=== PATIENT | female | born 1965 | race Caucasian/White ===

== ENCOUNTER 2024-02-28 17:57 | Inpatient (IN) ==
[2024-02-28 18:30] LABS: BILIRUBIN,URINE NEGATIVE (NEGATIVE); BLOOD/HEMOGLOBIN,URINE NEGATIVE (NEGATIVE); GLUCOSE, URINE NEGATIVE (NEGATIVE); KETONES,URINE NEGATIVE (NEGATIVE); LEUKOCYTE ESTERASE ,URINE NEGATIVE (NEGATIVE); NITRITES,URINE NEGATIVE (NEGATIVE); PROTEIN,URINE NEGATIVE (NEGATIVE); UROBILINOGEN,URINE NORMAL (NORMAL)
[2024-02-28 18:34] LABS: APPEARANCE,URINE CLEAR (CLEAR); COLOR,URINE YELLOW (YELLOW)
--- NOTE | 2024-02-28 18:36 | DR.EXTPAIN ---
HPI Time seen Time Seen by Provider: 02/28/24 18:34 PCP Primary Care Physician: Wu Complaint/Symptoms Chief Complaint Doctor Comments: Patient history of pelvic pain since yesterday. Denies pain with urination but states does have a stabbing pain with standing. Chief Complaint:: having pelvic pain since yesterday, denies pain with urination but has stabbing pain when standing. 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 Past Surgical History Comment: D&C x3 Family History History of Family Medical Conditions: No (unknown) Family Medical History: Hypertension Family Medical History Comment: adopted Social History Alcohol Use: None Do you use any recreational Drugs:: No Lives With: Spouse Lives Where: Home Travel Risk Coronavirus risk:travel/contact w/high risk person: No Has patient experienced Coronavirus symptoms: No Infectious screening Have you traveled outside the country in the last 6 months?: No Isolation: Standard ROS Review of Systems Constitutional: Other (Lower abdominal pain) Eyes: No Symptoms Reported ENTM: No Symptoms Reported Respiratoy: No Symptoms Reported Cardiovascular: No Symptoms Reported Gastrointestinal/Abdominal: Abdominal Pain Genitourinary: No Symptoms Reported Neurological: No Symptoms Reported Musculoskeletal: No Symptoms Reported Integumentary: No Symptoms Reported Hematologic/Lymphatic: No Symptoms Reported Endocrine: No Symptoms Reported Psychiatric: No Symptoms Reported PE Vital Signs Vitals: Vital Signs Temperature 97.5 F Pulse Rate 107 Respiratory Rate 20 Respiratory Rate 24 Blood Pressure 129/58 O2 Sat by Pulse Oximetry 95 General Limitations: No Limitations General Appearance: In Distress (MODERATE DISTRESS) Head Head Exam: Normal Inspection, Atraumatic and Normocephalic Eyes Eye exam: Normal Appearance and PERRL ENT ENT Exam: Normal Exam and Normal Oropharynx Neck Neck Exam: Normal Inspection, Full ROM and Trachea Midline Respiratory Respiratory Exam: Normal Lung Sounds Bilat Respiratory Exam: Bilateral: Clear to Auscultation Cardiovascular Cardiovascular Exam: Regular Rate and Normal Rhythm Abdominal Exam Abdominal Exam: Normal Inspection Extremities Extremities Exam: Normal Inspection and Full ROM Upper Extremities Shoulder Exam: Normal Inspection Arm Exam: Normal Inspection Elbow Exam: Normal Inspection Forearm Exam: Normal Inspection Hand Exam: Normal Inspection Neuromotor Exam: Normal Exam Neurosensory Exam: Normal Exam Lower Extremities Hip/Pelvis Exam: Normal Inspection Upper Leg Exam: Normal Inspection Knee Exam: Normal Inspection Lower Leg Exam: Normal Inspection Ankle Exam: Normal Inspection Foot/Toe Exam: Normal Inspection Gait Exam: Observed and Normal Back Back Exam: Normal Inspection Neurological Neurological Exam: Alert Psychiatric Psychiatric Exam: Normal Affect and Normal Mood Skin Skin Exam: Dry MDM Differential Diagnosis Differential Diagnosis: Other (DIVERTICULITIS,APPENDICITIS,BILE OBSTRUCTION,UROLITHIASIS,UTI,ADHESIONS) COURSE Treatment Treatment: Remained relatively stable during ER visit. We did do a CT scan of her abdomen pelvis and it did show diverticulitis of the sigmoid colon with abscess or free air. We did a CBC that had a slightly elevated WBC of 13.9 the metabolic panel was normal slight elevated glucose of 125. Urinalysis was negative. This patient was explained why diverticulitis was not an intent to admit her for acute diverticulitis we did give her initially 1 L bolus of normal saline and she got Zofran 4 mg IV as well as 100 mg of gentamicin IV. Contact was made with Dr. De Guzman at about [phone] and he is set the patient for admission for treatment of diverticulitis. This patient will be admitted to acute care. The patient was made aware of the intent to admit and was agreeable to the admission. ROR Labs Reviewed Laboratory Results Reviewed?: Yes 02/28/24 18:48 02/28/24 18:48 Laboratory: WBC 13.9 X10^3/uL (3.6-10.0) H 02/28/24 18:48 RBC 4.60 X10^6/uL (3.5-5.4) 02/28/24 18:48 Hgb 13.0 g/dL (12.0-16.0) 02/28/24 18:48 Hct 39.5 % (36.0-47.0) 02/28/24 18:48 MCV 85.9 fL (80.0-100.0) 02/28/24 18:48 MCH 28.3 pg (27.0-34.0) 02/28/24 18:48 MCHC 33.0 g/dL (33.0-35.0) 02/28/24 18:48 RDW 14.6 % (11.6-16.5) 02/28/24 18:48 Plt Count 316 X10^3/uL (150.0-450.0) 02/28/24 18:48 MPV 7.0 fL (7.4-11.0) L 02/28/24 18:48 Neut % (Auto) 67.7 % (42.0-75.0) 02/28/24 18:48 Lymph % (Auto) 21.5 % (21.0-51.0) 02/28/24 18:48 [place] % (Auto) 8.6 % (0.0-13.0) 02/28/24 18:48 Eos % (Auto) 1.5 % (0.9-2.9) 02/28/24 18:48 Baso % (Auto) 0.7 % (0.2-1.0) 02/28/24 18:48 Neut # (Auto) 9.4 x10^3/uL (2.2-4.8) H 02/28/24 18:48 Lymph # (Auto) 3.0 X10^3/uL (1.3-2.9) H 02/28/24 18:48 [place] # (Auto) 1.2 x10^3/uL (0.3-0.8) H 02/28/24 18:48 Eos # (Auto) 0.2 x10^3/uL (0.0-0.2) 02/28/24 18:48 Baso # (Auto) 0.1 X10^3/uL (0.0-0.1) 02/28/24 18:48 Absolute Nucleated RBC 0.1 /100WBC 02/28/24 18:48 Sodium 141 mmol/L (136-145) 02/28/24 18:48 Corrected Sodium 142 mmol/L (136-145) 02/28/24 18:48 Potassium 3.9 mmol/L (3.5-5.1) 02/28/24 18:48 Chloride 105 mmol/L (98-107) 02/28/24 18:48 Carbon Dioxide 30.5 mmol/L (21-32) 02/28/24 18:48 BUN 16 mg/dL (7-18) 02/28/24 18:48 Creatinine 1.03 mg/dL (0.55-1.02) H 02/28/24 18:48 Est GFR (MDRD) Af Amer > 60 (>60) 02/28/24 18:48 Est GFR (MDRD) Non-Af 58 (>60) L 02/28/24 18:48 Glucose 125 mg/dL (65-99) H 02/28/24 18:48 Calcium 8.9 mg/dL (8.5-10.1) 02/28/24 18:48 Corrected Calcium 9.5 mg/dL (8.5-10.1) 02/28/24 18:48 Total Bilirubin 0.20 mg/dL (0.2-1.0) 02/28/24 18:48 AST 20 Units/L (15-37) 02/28/24 18:48 ALT 38 Units/L (12-78) 02/28/24 18:48 Alkaline Phosphatase 118 Units/L (46-116) H 02/28/24 18:48 Total Protein 6.9 g/dL (6.4-8.2) 02/28/24 18:48 Albumin 3.2 g/dL (3.4-5.0) L 02/28/24 18:48 Globulin 3.7 g/dL (2.5-4.5) 02/28/24 18:48 Albumin/Globulin Ratio 0.9 Ratio (1.1-2.1) L 02/28/24 18:48 Specimen Type Clean catch urine 02/28/24 18:21 Urine Color Yellow (YELLOW) 02/28/24 18:21 Urine Appearance Clear (CLEAR) 02/28/24 18:21 Urine pH 5.0 (5.0 - 8.0) 02/28/24 18:21 Ur Specific [place] 1.020 (1.000-1.030) 02/28/24 18:21 Urine Protein Negative (NEGATIVE) 02/28/24 18:21 Urine Glucose (UA) Negative (NEGATIVE) 02/28/24 18:21 Urine Ketones Negative (NEGATIVE) 02/28/24 18:21 Urine Blood Negative (NEGATIVE) 02/28/24 18:21 Urine Nitrite Negative (NEGATIVE) 02/28/24 18:21 Urine Bilirubin Negative (NEGATIVE) 02/28/24 18:21 Urine Urobilinogen Normal (NORMAL) 02/28/24 18:21 Ur Leukocyte Esterase Negative (NEGATIVE) 02/28/24 18:21 Opioid Opioid Risk Tool Age (Gopal box if 16-45): No History of Preadolescent Sexual Abuse: No Total: 0 Total Score Risk Category: Low Risk Copyright: Brock MONTES predicting aberrant behaviors Discharge Plan Diagnosis Discharge Problem: Diverticulitis large intestine Discharge Plan Patient Disposition: ADMITTED INPATIENT Condition: Stable Prescriptions: No Action pantoprazole [Protonix] 40 mg Tablet,Delayed Release (Dr/Ec) 40 mg PO QDAY Health Concerns: Post Hospitalization: new medications and changes needed to prevent readmission or further decline. Pt educated and given instructions on all concerns. Plan of Treatment: Continue with present treatment and follow up plan. Pt is to keep follow up appointment as instructed and take medications as ordered. Orders to Discharge Patient Discharge Orders: Transfer (Routine); Ordered 02/29/24 Ordered By: Lowell Aquino Follow ups/Referrals Follow ups/Referrals: MADISON WU [Primary Care Provider] - 3 days
[2024-02-28 18:56] LABS: BASOPHILS # (AUTO) 0.1 X10^3/uL (0.0-0.1); BASOPHILS % (AUTO) 0.7 % (0.2-1.0); EOSINOPHILS # (AUTO) 0.2 x10^3/uL (0.0-0.2); EOSINOPHILS % (AUTO) 1.5 % (0.9-2.9); HEMATOCRIT 39.5 % (36.0-47.0); LYMPHOCYTES % (AUTO) 21.5 % (21.0-51.0); MEAN CORPUSCULAR HEMOGLOBIN 28.3 pg (27.0-34.0); MEAN CORPUSCULAR VOLUME 85.9 fL (80.0-100.0); MONOCYTES # (AUTO) 1.2 x10^3/uL (0.3-0.8); MONOCYTES % (AUTO) 8.6 % (0.0-13.0); NEUTROPHILS # (AUTO) 9.4 x10^3/uL (2.2-4.8); NEUTROPHILS % (AUTO) 67.7 % (42.0-75.0); PLATELET COUNT 316 X10^3/uL (150.0-450.0); RED CELL DISTRIBUTION WIDTH 14.6 % (11.6-16.5); WHITE BLOOD COUNT 13.9 X10^3/uL (3.6-10.0)
[2024-02-28] MEDS ORDERED: OMNIPAQUE 350 mg/mL 100 mL BTL 100 ML ONE (18:59)
[2024-02-28] MEDS: TORADOL 30 MG VIAL IVP ONE (19:02)
[2024-02-28 19:09] LABS: ALANINE AMINOTRANSFERASE 38 Units/L (12-78); ALBUMIN 3.2 g/dL (3.4-5.0); ALKALINE PHOSPHATASE 118 Units/L (46-116); ASPARTATE AMINO TRANSFERASE 20 Units/L (15-37); BLOOD UREA NITROGEN 16 mg/dL (7-18); CALCIUM 8.9 mg/dL (8.5-10.1); CARBON DIOXIDE 30.5 mmol/L (21-32); CHLORIDE 105 mmol/L (98-107); COR CA(FOR HYPOALB) 9.5 mg/dL (8.5-10.1); COR NA(FOR HYPERGLY) 142 mmol/L (136-145); CREATININE 1.03 mg/dL (0.55-1.02); GLUCOSE 125 mg/dL (65-99); POTASSIUM 3.9 mmol/L (3.5-5.1); SODIUM 141 mmol/L (136-145); TOTAL PROTEIN 6.9 g/dL (6.4-8.2); eGFR NON BLACK RACES 58 (>60)
--- NOTE | 2024-02-28 19:47 | CT ---
EXAM:ABDCMEN/PELVIS WITH CONHISTORY:lower abd pain;COMPARISON:None.TECHNIQUE:Following the intravenous administration of iodinated contrast, spiral CT imaging was performed through the abdomen and pelvis and axial, coronal, and sagittal CT images were generated.FINDINGS:The lung bases are grossly clear without effusion. Liver, gallbladder, pancreas, spleen are normal. There is some adrenal hyperplasia. There is mild right renal cortical scarring. Kidneys are otherwise unremarkable. There is food and fluid in the stomach. The small bowel loops are normal. The appendix is normal. There is diverticulosis of the descending and sigmoid colon. There is diverticulitis in the sigmoid colon with induration of the surrounding fat but no abscess or free air. Urinary bladder is normal. The uterus has been removed. There is moderate systemic atherosclerosis. There is degeneration of the lumbar spine and in the hips, right worse than left.IMPRESSION:1. Sigmoid diverticulitis without abscess or free air.THIS IS AN ELECTRONICALLY VERIFIED FINAL REPORT02/28/2024 7:43 PM - Electronically signed by Sudhir Junior MD
[2024-02-28] MEDS: NS 1,000 ML IV 1,000 ML IV ONE (20:41)
[2024-02-28] MEDS: ZOFRAN INJ 4 MG VIAL IVP ONE (20:41)
[2024-02-28] MEDS: GENTAMICIN INJ 80 MG in NS 100 ML IV 100 ML IV ONE (21:00)
[2024-02-29] MEDS ORDERED: ZOFRAN INJ 4 MG VIAL IVP PRN (01:26)
[2024-02-29] MEDS: D5 1/2 NS 1,000 ML 1,000 ML IV SCH (02:28)
[2024-02-29 02:33] VITALS: BMI 41.8
[2024-02-29] MEDS: DEMEROL INJ IVP PRN (02:36)
[2024-02-29 05:27] LABS: BASOPHILS # (AUTO) 0.1 X10^3/uL (0.0-0.1); BASOPHILS % (AUTO) 0.5 % (0.2-1.0); EOSINOPHILS # (AUTO) 0.2 x10^3/uL (0.0-0.2); EOSINOPHILS % (AUTO) 1.9 % (0.9-2.9); HEMATOCRIT 35.1 % (36.0-47.0); HEMOGLOBIN 11.7 g/dL (12.0-16.0); LYMPHOCYTES # (AUTO) 1.9 X10^3/uL (1.3-2.9); LYMPHOCYTES % (AUTO) 17.4 % (21.0-51.0); MEAN CORPUSCULAR HEMOGLOBIN 28.8 pg (27.0-34.0); MEAN CORPUSCULAR HGB CONC 33.2 g/dL (33.0-35.0); MEAN CORPUSCULAR VOLUME 86.5 fL (80.0-100.0); MEAN PLATELET VOLUME 7.3 fL (7.4-11.0); MONOCYTES % (AUTO) 8.9 % (0.0-13.0); NEUTROPHILS # (AUTO) 7.7 x10^3/uL (2.2-4.8); NEUTROPHILS % (AUTO) 71.3 % (42.0-75.0); PLATELET COUNT 305 X10^3/uL (150.0-450.0); RED BLOOD COUNT 4.06 X10^6/uL (3.5-5.4); RED CELL DISTRIBUTION WIDTH 14.4 % (11.6-16.5); WHITE BLOOD COUNT 10.8 X10^3/uL (3.6-10.0)
[2024-02-29] MEDS: CLEOCIN 300 MG IV PREMIX 300 MG/50 ML BAG IV SCH (05:36)
[2024-02-29 05:52] LABS: ALANINE AMINOTRANSFERASE 36 Units/L (12-78); ALBUMIN 2.7 g/dL (3.4-5.0); ALKALINE PHOSPHATASE 105 Units/L (46-116); ASPARTATE AMINO TRANSFERASE 24 Units/L (15-37); BLOOD UREA NITROGEN 19 mg/dL (7-18); CALCIUM 8.2 mg/dL (8.5-10.1); CARBON DIOXIDE 27.6 mmol/L (21-32); CHLORIDE 105 mmol/L (98-107); COR CA(FOR HYPOALB) 9.2 mg/dL (8.5-10.1); COR NA(FOR HYPERGLY) 139 mmol/L (136-145); CREATININE 0.89 mg/dL (0.55-1.02); GLUCOSE 113 mg/dL (65-99); POTASSIUM 4.3 mmol/L (3.5-5.1); SODIUM 139 mmol/L (136-145); TOTAL PROTEIN 5.9 g/dL (6.4-8.2); eGFR NON BLACK RACES > 60 (>60)
[2024-02-29] MEDS: PROTONIX INJ 40 MG VIAL IVP SCH (09:03)
[2024-02-29] MEDS: GENTAMICIN INJ 60 MG in NS 100 ML IV 100 ML IV SCH (09:04)
[2024-02-29] MEDS: NICOTINE PATCH TD SCH (09:04)
[2024-02-29] MEDS: TYLENOL 325 MG TAB PO PRN (09:44)
[2024-02-29] MEDS: CIPRO IV 400 MG PREMIX* 400 MG/200 ML IV.SOLN. IV SCH (09:52)
--- NOTE | 2024-02-29 12:27 | DR.H&P ---
H&P History & Physical for Day of: H&P Date: 02/29/24 Chief Complaint Chief Complaint: abdominal pain Allergies Allergies Allergy/AdvReac Type Severity Reaction Status Date / Time No Known Drug Allergies Allergy Unknown Verified 02/28/24 18:06 History of Present Illness History of Present Illness: Ms Fernando is a 58y/o female with a PMH of GERD presented with worsening lower abdominal pain. She also had some associated nausea and vomiting. In the ER, CTAP showed acute sigmoid diverticulitis. She was started on hydration, pain control and IV antibiotics. She was kept NPO. She is feeling better now. She has not had any nausea or vomiting overnight. She would like to try clear liquids. She states abdominal pain is better. She has been ambulating to the bathroom. Labs/imaging reviewed -WBC 10.8 Hgb 11.7 BUN/Cr: 19/0.89 Glucose 113 Plan: Will switch to Cipro, continue clindamycin. Continue IVF, pain control and anti-emetics. Start clears, advance as tolerated. Resume home medications. Ambulate as tolerated. Monitor AM labs/imaging. 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 Family History Family Medical History: Hypertension Social History Alcohol Use: None Medications Home Medications: Home Medications Medication Instructions Recorded Confirmed Type pantoprazole 40 mg tablet,delayed 40 mg PO QDAY 02/28/24 02/28/24 History release (Protonix) Labs 02/29/24 04:26 02/29/24 04:26 Labs: Laboratory WBC 10.8 X10^3/uL (3.6-10.0) H 02/29/24 04: RBC 4.06 X10^6/uL (3.5-5.4) 02/29/24 04:26 Hgb 11.7 g/dL (12.0-16.0) L 02/29/24 04: Hct 35.1 % (36.0-47.0) L 02/29/24 04: MCV 86.5 fL (80.0-100.0) 02/29/24 04:26 MCH 28.8 pg (27.0-34.0) 02/29/24 04: MCHC 33.2 g/dL (33.0-35.0) 02/29/24 04: RDW 14.4 % (11.6-16.5) 02/29/24 04: Plt Count 305 X10^3/uL (150.0-450.0) 02/29/24 04:26 MPV 7.3 fL (7.4-11.0) L 02/29/24 04:26 Neut % (Auto) 71.3 % (42.0-75.0) 02/29/24 04:26 Lymph % (Auto) 17.4 % (21.0-51.0) L 02/29/24 04:26 [place] % (Auto) 8.9 % (0.0-13.0) 02/29/24 04:26 Eos % (Auto) 1.9 % (0.9-2.9) 02/29/24 04: Baso % (Auto) 0.5 % (0.2-1.0) 02/29/24 04:26 Neut # (Auto) 7.7 x10^3/uL (2.2-4.8) H 02/29/24 04:26 Lymph # (Auto) 1.9 X10^3/uL (1.3-2.9) 02/29/24 04:26 [place] # (Auto) 1.0 x10^3/uL (0.3-0.8) H 02/29/24 04:26 Eos # (Auto) 0.2 x10^3/uL (0.0-0.2) 02/29/24 04:26 Baso # (Auto) 0.1 X10^3/uL (0.0-0.1) 02/29/24 04:26 Absolute Nucleated RBC 0.0 /100WBC 02/29/24 04:26 Sodium 139 mmol/L (136-145) 02/29/24 04:26 Corrected Sodium 139 mmol/L (136-145) 02/29/24 04:26 Potassium 4.3 mmol/L (3.5-5.1) 02/29/24 04:26 Chloride 105 mmol/L (98-107) 02/29/24 04:26 Carbon Dioxide 27.6 mmol/L (21-32) 02/29/24 04:26 BUN 19 mg/dL (7-18) H 02/29/24 04:26 Creatinine 0.89 mg/dL (0.55-1.02) 02/29/24 04:26 Est GFR (MDRD) Af Amer > 60 (>60) 02/29/24 04:26 Est GFR (MDRD) Non-Af > 60 (>60) 02/29/24 04:26 Glucose 113 mg/dL (65-99) H 02/29/24 04:26 Calcium 8.2 mg/dL (8.5-10.1) L 02/29/24 04:26 Corrected Calcium 9.2 mg/dL (8.5-10.1) 02/29/24 04:26 Total Bilirubin 0.30 mg/dL (0.2-1.0) 02/29/24 04:26 AST 24 Units/L (15-37) 02/29/24 04:26 ALT 36 Units/L (12-78) 02/29/24 04:26 Alkaline Phosphatase 105 Units/L (46-116) 02/29/24 04:26 Total Protein 5.9 g/dL (6.4-8.2) L 02/29/24 04:26 Albumin 2.7 g/dL (3.4-5.0) L 02/29/24 04:26 Globulin 3.2 g/dL (2.5-4.5) 02/29/24 04: Albumin/Globulin Ratio 0.8 Ratio (1.1-2.1) L 02/29/24 04:26 Specimen Type Clean catch urine 02/28/24 18:21 Urine Color Yellow (YELLOW) 02/28/24 18:21 Urine Appearance Clear (CLEAR) 02/28/24 18:21 Urine pH 5.0 (5.0 - 8.0) 02/28/24 18:21 Ur Specific [place] 1.020 (1.000-1.030) 02/28/24 18:21 Urine Protein Negative (NEGATIVE) 02/28/24 18:21 Urine Glucose (UA) Negative (NEGATIVE) 02/28/24 18: Urine Ketones Negative (NEGATIVE) 02/28/24 18:21 Urine Blood Negative (NEGATIVE) 02/28/24 18:21 Urine Nitrite Negative (NEGATIVE) 02/28/24 18:21 Urine Bilirubin Negative (NEGATIVE) 02/28/24 18:21 Urine Urobilinogen Normal (NORMAL) 02/28/24 18:21 Ur Leukocyte Esterase Negative (NEGATIVE) 02/28/24 18:21 Review of Systems Constitutional: Malaise Eyes: No Symptoms Reported Respiratory: No Symptoms Reported Cardiovascular: No Symptoms Reported Gastrointestinal: Nausea, Vomiting and Abdominal Pain Genitourinary: No Symptoms Reported Musculoskeletal: No Symptoms Reported Skin: No Symptoms Reported Neurological: No Symptoms Reported Physical Exam Vital Signs: Vital Signs Temperature 97.8 F Temperature 97.8 F Pulse Rate [Brachial] 76 Pulse Rate [Brachial] 81 Respiratory Rate 20 Respiratory Rate 20 Respiratory Rate 20 Respiratory Rate 20 Blood Pressure [Right Arm] 102/51 Blood Pressure [Right Arm] 124/70 O2 Sat by Pulse Oximetry 98 O2 Sat by Pulse Oximetry 96 Oriented: Normal Eyes: Normal Nose: Normal Respiratory: Clear Throughout Cardiovascular: Normal Auscultation: Bowel Sounds: Normal Tenderness: Suprapubic and Mild Skin: Normal Musculoskeletal: Normal Psychiatric: Normal Mood Description: Calm Affect: Normal Speech Pattern: Clear and Appropriate Assessment/Plan (1) Abdominal pain: Qualifiers: Abdominal location: upper abdomen, unspecified Qualified Code(s): R10.10 - Upper abdominal pain, unspecified Status: Acute (2) Diverticulitis large intestine: Qualifiers: Diverticulitis bleeding: without bleeding Diverticulitis complication: without perforation or abscess Qualified Code(s): K57.32 - Diverticulitis of large intestine without perforation or abscess without bleeding Status: Acute (3) Tobacco use disorder: Status: None (4) GERD (gastroesophageal reflux disease): Qualifiers: Esophagitis presence: esophagitis presence not specified Qualified Code(s): K21.9 - Gastro-esophageal reflux disease without esophagitis Status: Acute
[2024-02-29 19:59] VITALS: O2SAT 97
[2024-03-01 00:12] VITALS: RESP 20
[2024-03-01 05:15] LABS: BASOPHILS # (AUTO) 0.1 X10^3/uL (0.0-0.1); BASOPHILS % (AUTO) 0.6 % (0.2-1.0); EOSINOPHILS # (AUTO) 0.2 x10^3/uL (0.0-0.2); EOSINOPHILS % (AUTO) 2.5 % (0.9-2.9); HEMATOCRIT 37.9 % (36.0-47.0); HEMOGLOBIN 12.6 g/dL (12.0-16.0); LYMPHOCYTES # (AUTO) 1.5 X10^3/uL (1.3-2.9); LYMPHOCYTES % (AUTO) 16.6 % (21.0-51.0); MEAN CORPUSCULAR HEMOGLOBIN 28.5 pg (27.0-34.0); MEAN CORPUSCULAR HGB CONC 33.1 g/dL (33.0-35.0); MEAN CORPUSCULAR VOLUME 86.2 fL (80.0-100.0); MEAN PLATELET VOLUME 7.5 fL (7.4-11.0); MONOCYTES # (AUTO) 0.8 x10^3/uL (0.3-0.8); NEUTROPHILS # (AUTO) 6.3 x10^3/uL (2.2-4.8); NEUTROPHILS % (AUTO) 71.3 % (42.0-75.0); PLATELET COUNT 310 X10^3/uL (150.0-450.0); RED CELL DISTRIBUTION WIDTH 14.3 % (11.6-16.5); WHITE BLOOD COUNT 8.9 X10^3/uL (3.6-10.0)
[2024-03-01 05:22] LABS: ALANINE AMINOTRANSFERASE 37 Units/L (12-78); ALBUMIN 2.8 g/dL (3.4-5.0); ALKALINE PHOSPHATASE 106 Units/L (46-116); ASPARTATE AMINO TRANSFERASE 20 Units/L (15-37); BLOOD UREA NITROGEN 11 mg/dL (7-18); CALCIUM 8.7 mg/dL (8.5-10.1); CARBON DIOXIDE 26.7 mmol/L (21-32); CHLORIDE 105 mmol/L (98-107); COR CA(FOR HYPOALB) 9.7 mg/dL (8.5-10.1); COR NA(FOR HYPERGLY) 141 mmol/L (136-145); GLUCOSE 113 mg/dL (65-99); POTASSIUM 4.3 mmol/L (3.5-5.1); SODIUM 141 mmol/L (136-145); TOTAL PROTEIN 6.2 g/dL (6.4-8.2); eGFR NON BLACK RACES > 60 (>60)
[2024-03-01 08:26] VITALS: BP 114/66; PULSE 82; TEMP 98.3
== END 2024-03-01 11:20 | disposition home or self-care (01) | DRG 392 ==
LOC: ER 17:57 → MED/SURG 02-29 01:21
PROVIDERS: ADMIT Family Medicine; ATTEND Obstetrics & Gynecology Obstetrics
DX: R10.2 Pelvic and perineal pain; R10.10 Upper abdominal pain, unspecified; K21.9 Gastro-esophageal reflux disease without esophagitis; Z72.0 Tobacco use; K57.32 Diverticulitis of large intestine without perforation or abscess without bleeding; R11.2 Nausea with vomiting, unspecified; Z66 Do not resuscitate